=== PATIENT | female | born 1975 | race Caucasian/White ===

== ENCOUNTER 2018-12-02 09:04 | Emergency (ER) | payer OTHER ==
[~2018-12-02] VITALS: Ht 160 cm; Wt 76.7 kg
[2018-12-02 09:37] VITALS: BP 105/66
== END 2018-12-02 10:21 | disposition home or self-care (01) ==
LOC: ER 09:08
DX: E11.9 Type 2 diabetes mellitus without complications (principal); I10 Essential (primary) hypertension; Z76.0 Encounter for issue of repeat prescription
CPT/HCPCS: 82962